=== PATIENT | male | born 1945 | race Caucasian/White ===

== ENCOUNTER → 2022-12-18 | Outpatient (CLI) | payer OTHER, SELFPAY ==
--- NOTE | 2022-12-18 08:18 | ECHOCS_ITS ---
Reason For Study: Chronic Ischemic Heart Disease Procedure This was a 2D Doppler, Color Flow transthoracic echocardiogram. The study was technically difficult. Contrast injection was performed. Exam performed in department. Left Ventricle Normal LV size. Left ventricular systolic function is normal. The estimated ejection fraction is 60 %. No regional wall motion abnormalities noted. Right Ventricle Normal RV size. Normal systolic function. Atria The left atrium is moderately enlarged. Normal right atrium. Mitral Valve Normal mitral valve. Tricuspid Valve Normal tricuspid valve. Mild to moderate (1-2+) tricuspid valve insufficiency. Pulmonary artery systolic pressure is 30 mmHg. Aortic Valve Trisinus/trileaflet aortic valve. Mild (1+) aortic valve insufficiency. Pulmonic Valve Normal pulmonic valve. Great Vessels Normal aortic root. The pulmonary artery is normal size. Normal inferior vena cava. Pericardium/Pleural No pericardial effusion. Medication 22 gauge I.V. with prn adaptor inserted into left arm. Diluted definity 2.5ml given slow IV push to enhance endocardial definition. MMode/2D Measurements & Calculations LVIDd: 4.2 cm IVSd: 1.2 cm Ao root diam: 3.7 cm LVIDs: 2.9 cm LVPWd: 1.0 cm LA dimension: 5.1 cm RVDd: 3.8 cm FS: 30.0 % LAV(MOD-bp): 91.6 ml LVAd ap4: 33.3 cm2 SV(MOD-sp4): 64.5 ml LAV(MOD-bp) Indexed: 43.9 ml/m2 LVLd ap4: 8.8 cm LAV(MOD-sp2): 86.9 ml EDV(MOD-sp4): 103.0 ml LAV(MOD-sp4): 88.9 ml EDV(sp4-el): 106.6 ml LVAs ap4: 17.6 cm2 LVLs ap4: 6.8 cm ESV(MOD-sp4): 38.5 ml ESV(sp4-el): 38.4 ml EF(MOD-sp4): 62.6 % EF(sp4-el): 63.9 % SV(sp4-el): 68.1 ml LA A4 area: 26.9 cm2 RA A4 area: 18.9 cm2 TAPSE: 1.2 cm Time Measurements MV dec time: 0.21 sec Doppler Measurements & Calculations MV E max duane: 89.7 cm/sec Lat Peak E' Duane: 12.8 cm/sec Med Peak E' Duane: 7.9 cm/sec MV A max duane: 66.9 cm/sec E/E' lat: 7.0 E/E' med: 11.3 MV E/A: 1.3 MV V2 max: 95.3 cm/sec Ao V2 max: 122.7 cm/sec MV max P.6 mmHg MV dec slope: 429.9 cm/sec2 Ao max P.0 mmHg MV V2 mean: 52.0 cm/sec Ao V2 mean: 86.0 cm/sec MV mean P.3 mmHg Ao mean P.4 mmHg MV V2 VTI: 29.5 cm Ao V2 VTI: 28.6 cm AV (velocity ratio): 0.72 AI max duane: 348.2 cm/sec LV V1 max: 85.9 cm/sec PA V2 max: 66.2 cm/sec AI max P.5 mmHg LV V1 max P.0 mmHg LV V1 mean P.7 mmHg AI dec slope: 97.5 cm/sec2 LV V1 mean: 62.0 cm/sec AI P1/2t: 1046 msec LV V1 VTI: 20.6 cm TR max duane: 264.2 cm/sec TR max P.9 mmHg ECHO/Echo Complete W/ Contrast Interpretation Summary Normal LV size. Left ventricular systolic function is normal. The estimated ejection fraction is 60 %. Mild to moderate (1-2+) tricuspid valve insufficiency. The left atrium is moderately enlarged. Pulmonary artery systolic pressure is 30 mmHg. Contrast injection was performed. Ordering Physician: Carrillo Hinson Referring Physician: Carrillo Hinson Performed By: Brayan Moctezuma RCS
[2022-12-18 10:18] LABS: Color, Urine Yellow (Yellow); Glucose, Dipstick 1000 mg/dl (Normal); Ketone-Dipstick Negative (Negative); Leukocyte Esterase-Dipstick Negative /ul (Negative); Nitrite-Dipstick Negative (Negative); Occult Blood-Urine Negative /ul (Negative); Protein-Dipstick Negative (Negative); Specific Gravity, Urine 1.015 (1.002-1.030); Urine Bilirubin Dipstick Negative (Negative); Urine Clarity Clear (Clear); Urine Urobilinogen Normal (Normal)
[2022-12-18 10:58] LABS: AST(SGOT) 11 U/L (15-37); Alanine Aminotransfer ALT/SGPT 26 U/L (16-61); Albumin, Serum 3.7 g/dL (3.2-5.0); Alkaline Phosphatase 97 U/L (45-117); Anion Gap 4 (5-15); BUN 19 mg/dL (7-18); BUN/Creat Ratio 23.8 RATIO (10-20); Calcium,Total 9.2 mg/dL (8.5-10.1); Chloride 108 mmol/L (98-107); EST Glomerular Filtration Rate 100 mL/min (>60); Est Glom Filt Rate - Afr Amer 121 mL/min (>60); Globulin 3.6 g/dL (2.2-4.2); Glucose 116 mg/dL (74-106); Potassium 4.4 mmol/L (3.5-5.1); Protein, Total 7.3 g/dL (6.4-8.2); Sodium Level 139 mmol/L (136-145)
== END | disposition home or self-care (01) ==
LOC: CVS 08:19 → LAB 09:37
PROVIDERS: PCP Internal Medicine; Referring Provider Chiropractor; Visit Provider Chiropractor
DX: I25.9 Chronic ischemic heart disease, unspecified (principal); E11.9 Type 2 diabetes mellitus without complications
CPT/HCPCS: 36415; 80053; 81002; 93306; Q9957; A4216; C8929